=== PATIENT | female | born 1965 | race Caucasian/White ===

== ENCOUNTER 2017-08-21 11:18 | Day surgery (SDC) | payer MEDICAID ==
[2017-08-21] MEDS ORDERED: SOD CHLORIDE 0.9% 1,000 ML IV (12:30)
[2017-08-21] MEDS ORDERED: CEFAZOLIN 1 GM/50 ML (PMX) 50 ML IVPB (12:30)
[2017-08-21] MEDS: FENTAnyl 50 MCG/ML VIAL (15:11)
[2017-08-21] MEDS: LIDOCAINE 1% (MDV) 10 ML INJ (15:37)
[2017-08-21] MEDS: POLYMYXIN/BACITRACIN 1L IRRIG IRR (16:00)
[2017-08-21] MEDS: DIPHENHYDRAMINE 50 MG INJ (16:00)
[2017-08-21] MEDS ORDERED: HYDROCODONE/APAP (5/325) TAB PO (16:30)
== END 2017-08-21 17:50 | disposition home or self-care (01) ==
LOC: SDS 11:18
DX: Z45.2 Encounter for adjustment and management of vascular access device (principal); Z85.3 Personal history of malignant neoplasm of breast
CPT/HCPCS: 36589